=== PATIENT | female | born 1970 | race Two or more races ===

== ENCOUNTER 2024-04-12 06:19 | Day surgery (SDC) | payer OTHER, SELFPAY | END 2024-04-12 10:03 | disposition home or self-care (01) | LOC: GI 06:19 | PROVIDERS: ATTENDING PHYSICIAN Internal Medicine Gastroenterology | DX: Z12.11 Encounter for screening for malignant neoplasm of colon (principal); K63.5 Polyp of colon; K64.0 First degree hemorrhoids; K57.30 Diverticulosis of large intestine without perforation or abscess without bleeding; Z80.0 Family history of malignant neoplasm of digestive organs | CPT/HCPCS: 45380; 88305 ==